=== PATIENT | female | born 1955 | race Caucasian/White ===

== ENCOUNTER 2019-04-07 | Emergency (ER) | payer SELFPAY ==
[2019-04-07 17:18] LABS: HEMATOCRIT 40.8 % (37.0-47.0); HEMOGLOBIN 13.4 g/dl (12.0-16.0); IMMATURE GRANULOCYTES 0.5 % (0.0-5.0); MEAN CELL VOLUME 93.4 fL CALC (80.0-100.0); MEAN CORPUSCULAR HGB 30.7 pG CALC (26.0-32.0); MEAN CORPUSCULAR HGB CONC 32.8 g/L CALC (32.0-36.0); NEUT# 6.83 thou/uL (2.00-7.15); RED BLOOD COUNT 4.37 mill/uL (4.20-5.60); RED CELL DISTRI WIDTH 13.7 % (11.5-15.5)
[2019-04-07 17:21] LABS: URINE BILIRUBIN - DIPSTICK NEGATIVE (NEGATIVE); URINE BLOOD DIPSTICK NEGATIVE (NEGATIVE); URINE COLOR YELLOW; URINE GLUCOSE - DIPSTICK NEGATIVE (NEGATIVE); URINE KETONE NEGATIVE (NEGATIVE); URINE LEUK ESTERASE NEGATIVE (NEGATIVE); URINE NITRITE - DIPSTICK NEGATIVE (Negative); URINE PROTEIN - DIPSTICK TRACE mg/dL (NEG-TRACE); URINE SPECIFIC GRAVITY 1.015; URINE UROBILINOGEN - DIPSTICK 0.2 E.U./dL (0.2)
[2019-04-07 17:37] LABS: ALBUMIN 4.8 g/dL (3.2-5.0); ALKALINE PHOSPHATASE 114 u/l (38-126); ANION GAP 15 (6-22 (CALC)); BILIRUBIN, TOTAL 0.5 mg/dL (0.0-1.4); BUN 12 mg/dL (8-23); BUN/CREATININE RATIO 26 (12-20 (CALC)); CARBON DIOXIDE 24 mmol/l (22-30); CHLORIDE 103 mmol/l (95-108); CREATININE 0.5 mg/dL (0.5-1.0); GFR > 60 ML/MIN (>=60 (CALC)); GFR FOR AFR.AMER. > 60 ML/MIN (>=60 (CALC)); LIPASE 89 u/l (23-300); POTASSIUM 4.1 mmol/l (3.5-5.1); SGOT/AST 37 u/l (9-36); SODIUM 138 mmol/l (137-146); TOTAL PROTEIN 7.7 g/dL (6.3-8.2)
== END 2019-04-07 20:15 | disposition home or self-care (01) | DRG 392 ==
PROVIDERS: Family Medicine
DX: R10.12 Left upper quadrant pain (principal); R10.32 Left lower quadrant pain; R51 Headache
CPT/HCPCS: Q9967

== ENCOUNTER 2019-11-01 18:06 | Inpatient (IN) | payer SELFPAY ==
[~2019-11-01] VITALS: Ht 157.5 cm; Wt 80.7 kg
[2019-11-01 18:51] LABS: HEMATOCRIT 38.8 % (37.0-47.0); HEMOGLOBIN 12.7 g/dl (12.0-16.0); IMMATURE GRANULOCYTES 0.6 % (0.0-5.0); MEAN CELL VOLUME 91.1 fL CALC (80.0-100.0); MEAN CORPUSCULAR HGB 29.8 pG CALC (26.0-32.0); MEAN CORPUSCULAR HGB CONC 32.7 g/dL CAL (32.0-36.0); NEUT# 2.7 thou/uL (2.00-7.15); RED BLOOD COUNT 4.26 mill/uL (4.20-5.60); RED CELL DISTRI WIDTH 14.2 % (11.5-15.5)
[2019-11-01 19:09] LABS: ALKALINE PHOSPHATASE 98 u/l (38-126); ANION GAP 13 (6-22 (CALC)); BILIRUBIN, TOTAL 0.7 mg/dL (0.0-1.4); BUN 12 mg/dL (8-23); BUN/CREATININE RATIO 21 (12-20 (CALC)); C-REACTIVE PROTEIN 8.5 mg/dL (0-0.9); CARBON DIOXIDE 27 mmol/l (22-30); CHLORIDE 94 mmol/l (95-108); CREATININE 0.6 mg/dL (0.5-1.0); GFR > 60 ML/MIN (>=60 (CALC)); GFR FOR AFR.AMER. > 60 ML/MIN (>=60 (CALC)); POTASSIUM 3.8 mmol/l (3.5-5.1); SGOT/AST 36 u/l (9-36); TOTAL PROTEIN 6.5 g/dL (6.3-8.2)
[2019-11-01 19:11] LABS: SODIUM 130 mmol/l (137-146)
--- NOTE | 2019-11-01 19:25 | NUR ---
PT TRIAGED. C/O NAUSEA. UNABLE TO GIVE HX ENTIRELY. DOES NOT HAVE MED LIST. IV PORT ALREADY STARTED. IVF STARTED/ZOFRAN GIVEN. TEMP 100.7 AND OFIMIR GIVEN. PT ON O2. TO XRAY VIA STRETCHER WITH O2.
--- NOTE | 2019-11-01 19:50 | NUR ---
PT RETURNED AND IVF RE-CONNECTED. PT RE-CONNECTED TO [facility].
--- NOTE | 2019-11-01 21:12 | NUR ---
PT UP TO BSC TO VOID. PT WILL BE AN ER HOLD. STRETCHER REMOVED AND HOSPITAL BED IN ROOM FOR PT COMFORT. PT GIVEN GINGERALE AND CRACKERS/WATER/CRANBERRY JUICE. PT UNABLE TO VOID AT THIS TIME.
[2019-11-01 22:00] VITALS: BP 119/70
--- NOTE | 2019-11-01 22:11 | NUR ---
PT WAS UNABLE TO URINATE EARLIER...BUT NOW VOIDED 450 CC OF CLEAR VONNIE URINE. SAMPLE TO LAB. PT FEELS BETTER. NO VOMITING SINCE ARRIVAL. DRINKING PO FLUIDS. VSS.
[2019-11-01 23:49] LABS: URINE BILIRUBIN - DIPSTICK NEGATIVE (NEGATIVE); URINE BLOOD DIPSTICK NEGATIVE (NEGATIVE); URINE CLARITY CLEAR; URINE COLOR YELLOW; URINE GLUCOSE - DIPSTICK NEGATIVE (NEGATIVE); URINE KETONE NEGATIVE (NEGATIVE); URINE LEUK ESTERASE NEGATIVE (Negative); URINE NITRITE - DIPSTICK NEGATIVE (Negative); URINE PH 6.5 (4.5-8.0); URINE PROTEIN - DIPSTICK NEGATIVE (NEG-TRACE); URINE SPECIFIC GRAVITY <=1.005; URINE UROBILINOGEN - DIPSTICK 0.2 E.U./dL (0.2)
--- NOTE | 2019-11-02 01:56 | NUR ---
PT SLEEPING. NAD. VSS.
[2019-11-02 02:00] VITALS: BP 103/67
--- NOTE | 2019-11-02 03:00 | NUR ---
PT OUT OF BED TO BSC TO VOID. STATES WHEN SHE WOKE UP THE BED WAS WET....IV PULLED OUT AND FLUIDS RUNNING INTO THE BED. LINENS CHANGED.
--- NOTE | 2019-11-02 04:29 | NUR ---
RESTING. AWAKE. NAD
--- NOTE | 2019-11-02 05:49 | NUR ---
LAB HERE TO DRAW AM LABS.
[2019-11-02 06:19] VITALS: BP 117/71
[2019-11-02 06:28] LABS: BUN 10 mg/dL (8-23); BUN/CREATININE RATIO 22 (12-20 (CALC)); C-REACTIVE PROTEIN 8.5 mg/dL (0-0.9); CREATININE 0.4 mg/dL (0.5-1.0); GFR > 60 ML/MIN (>=60 (CALC)); GFR FOR AFR.AMER. > 60 ML/MIN (>=60 (CALC)); POTASSIUM 3.7 mmol/l (3.5-5.1); SODIUM 135 mmol/l (137-146)
[2019-11-02 06:30] LABS: HEMATOCRIT 38.3 % (37.0-47.0); HEMOGLOBIN 12.5 g/dl (12.0-16.0); MEAN CELL VOLUME 92.3 fL CALC (80.0-100.0); MEAN CORPUSCULAR HGB 30.1 pG CALC (26.0-32.0); MEAN CORPUSCULAR HGB CONC 32.6 g/dL CAL (32.0-36.0); NEUT# 1.1 thou/uL (2.00-7.15); RED BLOOD COUNT 4.15 mill/uL (4.20-5.60); RED CELL DISTRI WIDTH 14.3 % (11.5-15.5)
[2019-11-02 07:09] LABS: ANION GAP 12 (6-22 (CALC)); CARBON DIOXIDE 21 mmol/l (22-30); CHLORIDE 106 mmol/l (95-108)
--- NOTE | 2019-11-02 07:12 | NUR ---
REPORT TO ANKITA NIEVES
--- NOTE | 2019-11-02 07:16 | NUR ---
The patient is an ER hold. No complaints at this time.
--- NOTE | 2019-11-02 07:17 | NUR ---
the patient is waiting for a room, er hold at this time.
--- NOTE | 2019-11-02 08:00 | NUR ---
tHE PATIENT IS RESTING COMFORTABLY
--- NOTE | 2019-11-02 09:00 | NUR ---
tHE PATIENT WAS MEDICAATED WITH MORNING MEDS. IV FLUID. NO COMPLAINTS AT THIS TIME.
[2019-11-02] MEDS ORDERED: ALBUTEROL SUL0.083 % IN (09:55)
[2019-11-02] MEDS ORDERED: ALENDRONATE SOD70 MG PO (09:57)
[2019-11-02] MEDS ORDERED: AMITRIPTYLIN25 MG PO (09:58)
[2019-11-02] MEDS ORDERED: ANASTROZOLE1 MG PO (09:58)
[2019-11-02] MEDS ORDERED: FOLIC ACID1 MG PO (09:59)
[2019-11-02] MEDS ORDERED: CIPROFLOXACN500 MG PO (09:59)
[2019-11-02] MEDS ORDERED: LIPITOR40 M1 PO (09:59)
[2019-11-02] MEDS ORDERED: GABAPENTIN100 MG PO (10:00)
[2019-11-02] MEDS ORDERED: PROMETHAZIN1 PO (10:01)
--- NOTE | 2019-11-02 10:03 | NUR ---
THE PATIENT WANTS A PHONE TO CALL HER .
--- NOTE | 2019-11-02 11:10 | NUR ---
THE PATIENT IS WAITING FOR A ROOM. WILL MAKE SURE SHE GETS A FOOD TRAY FOR LUNCH
--- NOTE | 2019-11-02 12:10 | NUR ---
SBAR PRINTED TO FLOOR
--- NOTE | 2019-11-02 13:00 | NUR ---
THE PATIENT ATE LUNHCH.
--- NOTE | 2019-11-02 14:14 | NUR ---
WAITING FOR ROOM UPSTAIRS. NO COMPLAINTS AT THIS TIME
[2019-11-02 16:24] VITALS: BP 147/87
--- NOTE | 2019-11-02 16:24 | NUR ---
PT ARRIVED TO MED SURG ROOM 287 IN STABLE CONDITION VIA WHEELCHAIR ACCOMPAINED BY ER STAFF. PT AMBULATED FROM WHEELCHAIR TO BED WITH STEADY GAIT, FALL RISK BAND APPLIED. PT IS A/OX3. ASSESSMENT ANND VITALS COMPLETED AT THIS TIME. BP 147/87, HR 94, O2 95% ON 2L NC. RESPIRATIONS ARE EVEN AND UNLABORED WITH NO SIGNS OF DISTRESS. LUNG SOUNDS ARE CLEAR. HEART RHYTHM IS NORMAL. BOWEL SOUNDS ARE HYPOACTIVE, LAST REPORTED BM 11/02/19. RADIAL AND PEDAL PULSES ARE STRONG WITH NORMAL CAPILLARY REFILL. #22G IN LAC RUNNING AT 50MLS ORDERED, SITE APPEARS HEALHTY AND PATENT. PT COMPLAINS OF 7/10 LOWER BACK PAIN. TYLENOL TO BE ADMINSITERED. PT INFORMS WRITTER THAT SHE REPORTED TO ER FOR VOMITING AND SOB. PT ALSO INFORMS WRITTER THAT SHE HAS BEEN TAKING ANTIBIOTICS FOR ABOUT 5 DAYS. PT INFORMS WRITTER THAT SHE HAS NO KNOWN ALLERGIES, ALLERGY BAND APPLIED. ALL SAFTEY PRECAUTIONS ARE IN PLACE. PT ORIENTED TO ROOM AND CALL SYSTEM. WILL CONTINUE TO MONITOR
--- NOTE | 2019-11-02 19:06 | NUR ---
REPORT FROM RUPINDER ROGERS. PT NOTED RESTING IN BED. NO APPARENT DISTRESS NOTED. IV SITE APPEARS HEALTHY. PT DENIES ANY PAIN OR DISCOMFORT. NO APPARENT RESPIRATORY DISTRESS NOTED, 02 @ 2L/M VIA NC. SAP BASIS IN PLACE. DISCUSSED POC. PT VERBALIZED UNDERSTANDING. CALL LIGHT WITHIN REACH. WILL CONTINUE TO MONITOR.
[2019-11-02 19:30] VITALS: BP 143/80
--- NOTE | 2019-11-02 23:38 | NUR ---
PT RESTING IN BED. NO APPARENT DISTRESS NOTED. CALL LIGHT WITHIN REACH. WILL CONTINUE TO MONITOR.
[2019-11-03 00:14] VITALS: BP 108/69
--- NOTE | 2019-11-03 03:17 | NUR ---
PT RESTING IN BED WITH EYES CLOSED. NO APPARENT DISTRESS NOTED. RESPIRATIONS EVEN AND UNLABORED. TOPOGRAPHY TECHNICIAN IN PLACE. IV SITES APPEAR HEALTHY. CALL LIGHT WITHIN REACH. WILL CONTINUE TO MONITOR.
[2019-11-03 04:00] VITALS: BP 142/77
[2019-11-03 05:31] LABS: HEMATOCRIT 36.3 % (37.0-47.0); HEMOGLOBIN 11.7 g/dl (12.0-16.0); IMMATURE GRANULOCYTES 0.5 % (0.0-5.0); MEAN CELL VOLUME 92.8 fL CALC (80.0-100.0); MEAN CORPUSCULAR HGB 29.9 pG CALC (26.0-32.0); MEAN CORPUSCULAR HGB CONC 32.2 g/dL CAL (32.0-36.0); NEUT# 4.63 thou/uL (2.00-7.15); RED BLOOD COUNT 3.91 mill/uL (4.20-5.60); RED CELL DISTRI WIDTH 14.4 % (11.5-15.5)
[2019-11-03 06:30] LABS: ALBUMIN 3.3 g/dL (3.2-5.0); ALKALINE PHOSPHATASE 76 u/l (38-126); ANION GAP 12 (6-22 (CALC)); BUN 14 mg/dL (8-23); BUN/CREATININE RATIO 30 (12-20 (CALC)); C-REACTIVE PROTEIN 5.1 mg/dL (0-0.9); CARBON DIOXIDE 19 mmol/l (22-30); CHLORIDE 110 mmol/l (95-108); CREATININE 0.5 mg/dL (0.5-1.0); GFR > 60 ML/MIN (>=60 (CALC)); GFR FOR AFR.AMER. > 60 ML/MIN (>=60 (CALC)); MAGNESIUM 2.1 mg/dL (1.6-2.3); POTASSIUM 3.7 mmol/l (3.5-5.1); SGOT/AST 34 u/l (9-36); SODIUM 138 mmol/l (137-146); TOTAL PROTEIN 5.6 g/dL (6.3-8.2)
[2019-11-03 06:33] LABS: BILIRUBIN, TOTAL 0.4 mg/dL (0.0-1.4)
[2019-11-03 07:37] VITALS: BP 122/74
--- NOTE | 2019-11-03 07:37 | NUR ---
PT SITTING IN BED. A&O X3. NO DISTRESS NOTED. PT CURRENTLY ON O2 VIA NC @ 2L, DENIES O2 USE AT HOME. ATTEMPT TO TITRATE PT OFF O2 WILL BE MADE. NO OTHER NEEDS AT THIS TIME. ASSESSMENT COMPLETED. DISCUSSED POC. ISOLATION PRECAUTIONS IN PLACE. CALL LIGHT IN REACH. CONTINUE TO MONITOR.
[2019-11-03 11:10] VITALS: BP 146/75
--- NOTE | 2019-11-03 12:50 | NUR ---
PT SITTING IN RECLINER. PT ASSISTED TO THE SHOWER BY HOLLIE BLANKENSHIP. NO DISTRESS OR NEEDS AT THIS TIME. CALL LIGHT IN REACH. CONTINUE TO MONITOR.
[2019-11-03 15:35] VITALS: BP 146/81
--- NOTE | 2019-11-03 19:12 | NUR ---
REPORT FROM SELINA ROGERS. PT SITTING UP IN CHAIR AT BEDSIDE. NO APPARENT DISTRESS NOTED. IV SITE APPEARS HEALTHY WITH IVF INFUSING. PT DENIES ANY PAIN OR DISCOMFORT. NO APPARENT RESPIRATORY DISTRESS NOTED, ON RA. NEON GLASS BENDER IN PLACE. DISCUSSED POC. PT VERBALIZED UNDERSTANDING. CALL LIGHT WITHIN REACH. WILL CONTINUE TO MONITOR.
[2019-11-03 19:20] VITALS: BP 121/79
--- NOTE | 2019-11-03 21:45 | NUR ---
PT C/O BURNING AT IV SITE WITH AZITHROMYCIN INFUSING. IV SITE FLUSHED WITH NS, BURNING RESOLVED. IV SITE APPEARS HEALTHY, NO REDNESS OR SWELLING NOTED, BLOOD RETURN NOTED. IV ABT AZITHROMYCIN RATE DECREASED WITH EFFECT. CHIEF RADIOLOGY OFFERED TO ATTEMPT TO START NEW SITE, PT REFUSED AT THIS TIME. PT DENIES ANY OTHER WANTS OR NEEDS. CALL LIGHT WITHIN REACH. WILL CONTINUE TO MONITOR.
--- NOTE | 2019-11-04 00:16 | NUR ---
PT RESTING IN BED WITH EYES CLOSED. NO APPARENT DISTRESS NOTED. CALL LIGHT WITHIN REACH. WILL CONTINUE TO MONITOR.
[2019-11-04 00:26] VITALS: BP 138/78
--- NOTE | 2019-11-04 04:06 | NUR ---
PT RESTING IN BED WITH EYES CLOSED. NO APPARENT DISTRESS NOTED. PT ON RA, RESPIRATIONS EVEN AND UNLABORED. CALL LIGHT WITHIN REACH. WILL CONTINUE TO MONITOR.
[2019-11-04 07:59] VITALS: BP 108/67
--- NOTE | 2019-11-04 07:59 | NUR ---
PT SITTING IN RECLINER. A&O X3. NO DISTRESS NOTED. PT REPORTS TO BE FEELING BETTER THAN YESTERDAY THIS MORNING. PT CURRENTLY ON RA AND STATES SHE DID NOT USE THE O2 THROUGHOUT THE NIGHT. NO OTHER NEEDS AT THIS TIME. ASSESSMENT COMPLETED. DISCUSSED POC. ISOLATION PRECAUTIONS IN PLACE. CALL LIGHT IN REACH. CONTINUE TO MONITOR.
[2019-11-04 10:00] VITALS: BP 136/64
--- NOTE | 2019-11-04 10:43 | NUR ---
PT AMBULATING ROOM WITH O2 % @ HIGH 70-MID 80'S RA. RESULTS COMMUNICATED WITH COMPONENT LAB TECH.
--- NOTE | 2019-11-04 12:40 | NUR ---
PT SITTING IN RECLINER EATING LUNCH. NO DISTRESS OR NEEDS AT THIS TIME. CALL LIGHT IN REACH. CONTINUE TO MONITOR.
[2019-11-04 15:00] VITALS: BP 114/88
--- NOTE | 2019-11-04 18:00 | NUR ---
PT SITTING IN RECLINER. NO DISTRESS OR NEEDS AT THIS TIME. CALL LIGHT IN REACH. CONTINUE TO MONITOR.
[2019-11-04 19:20] VITALS: BP 148/75
--- NOTE | 2019-11-04 20:05 | NUR ---
REPORT FROM SELINA ROGERS. PT SITTING UP IN CHAIR AT BEDSIDE. NO APPARENT DISTRESS NOTED. IV SITE APPEARS HEALTHY WITH IVF INFUSING. PT DENIES ANY PAIN OR DISCOMFORT. NO APPARENT RESPIRATORY DISTRESS NOTED, ON RA. DRY FOOD PRODUCTS MIXER IN PLACE. DISCUSSED POC. PT VERBALIZED UNDERSTANDING. CALL LIGHT WITHIN REACH. WILL CONTINUE TO MONITOR.
--- NOTE | 2019-11-05 00:16 | NUR ---
PT RESTING IN BED. NO APPARENT DISTRESS NOTED. ALERT AND ORIENTED X3. PT DENIES ANY PAIN OR DISCOMFORT. CALL LIGHT WITHIN REACH. WILL CONTINUE TO MONITOR.
[2019-11-05 00:25] VITALS: BP 141/76
--- NOTE | 2019-11-05 04:27 | NUR ---
PT RESTING IN BED WITH EYES CLOSED. NO APPARENT DISTRESS NOTED. RESPIRATIONS EVEN AND UNLABORED. CALL LIGHT WITHIN REACH. WILL CONTINUE TO MONITOR.
[2019-11-05 04:42] VITALS: BP 140/76
[2019-11-05 05:01] LABS: HEMATOCRIT 32.9 % (37.0-47.0); HEMOGLOBIN 10.7 g/dl (12.0-16.0); IMMATURE GRANULOCYTES 1.4 % (0.0-5.0); MEAN CELL VOLUME 91.1 fL CALC (80.0-100.0); MEAN CORPUSCULAR HGB 29.6 pG CALC (26.0-32.0); MEAN CORPUSCULAR HGB CONC 32.5 g/dL CAL (32.0-36.0); NEUT# 3.3 thou/uL (2.00-7.15); RED BLOOD COUNT 3.61 mill/uL (4.20-5.60); RED CELL DISTRI WIDTH 14.2 % (11.5-15.5)
[2019-11-05 05:22] LABS: ALBUMIN 3.2 g/dL (3.2-5.0); ALKALINE PHOSPHATASE 78 u/l (38-126); BILIRUBIN, TOTAL 0.5 mg/dL (0.0-1.4); BUN 12 mg/dL (8-23); BUN/CREATININE RATIO 27 (12-20 (CALC)); C-REACTIVE PROTEIN 2.2 mg/dL (0-0.9); CHLORIDE 105 mmol/l (95-108); CREATININE 0.4 mg/dL (0.5-1.0); GFR > 60 ML/MIN (>=60 (CALC)); GFR FOR AFR.AMER. > 60 ML/MIN (>=60 (CALC)); POTASSIUM 3.2 mmol/l (3.5-5.1); SODIUM 136 mmol/l (137-146); TOTAL PROTEIN 5.3 g/dL (6.3-8.2)
[2019-11-05 05:23] LABS: ANION GAP 10 (6-22 (CALC)); CARBON DIOXIDE 24 mmol/l (22-30); SGOT/AST 65 u/l (9-36)
[2019-11-05 08:02] VITALS: BP 114/81
--- NOTE | 2019-11-05 08:02 | NUR ---
PT SITTING IN RECLINER, SLIGHT FLUSHING TO FACE NOTED BUT CURRENTLY AFEBRILE.O2 VIA NC @2L IN PLACE. NO OTHER NEEDS AT THIS TIME. ASSESSMENT COMPLETED. DISCUSSED POC. ISOLATION PRECAUTIONS IN PLACE. CALL LIGHT IN REACH. CONTINUE TO MONITOR.
[2019-11-05 10:30] VITALS: BP 116/75
--- NOTE | 2019-11-05 12:25 | NUR ---
PT SITTING IN RECLINER. NO DISTRESS OR NEEDS AT THIS TIME O2 VIA NC IN PLACE. CALL LIGHT IN REACH. CONTINUE TO MONITOR.
[2019-11-05 15:00] VITALS: BP 137/71
--- NOTE | 2019-11-05 17:34 | NUR ---
CALL PLACED TO MS AND SPOKE WITH SELINA, PATIENT'S NURSE. GAVE POSITIVE COVID-19 RESULTS. SELINA REPORTS SHE AND DR. ROSALES AWARE.
--- NOTE | 2019-11-05 17:40 | NUR ---
PT SITTING IN RECLINER. NO DISTRESS OR NEEDS AT THIS TIME. CALL LIGHT IN REACH. CONTINUE TO MONITOR.
[2019-11-05 19:20] VITALS: BP 142/84
--- NOTE | 2019-11-05 19:30 | NUR ---
1930-Pt assessment complete. Pt pleasant female. No s/s of distress. Denies pain. States her SOB is getting better. Bed low and locked. Call light and phone within reach. Pt stable. Will continue to monitor.
--- NOTE | 2019-11-05 22:42 | NUR ---
224-EZEQUIEL Loera attempted to replace IV access after I determined current IV access was not patent. Pt tolerated removal well, IV catheter intact. No IV access was established. I contacted Dr. Ureña about changing IV meds to PO at 2303, he immediately responded that he would change the orders. Pt stated the site felt better and denied any further discomfort. Bed low and locked. Call light and phone within reach. Pt stable. Will continue to monitor.
[2019-11-06] VITALS (7 sets, daily range): BP systolic 124–168; BP diastolic 67–88
--- NOTE | 2019-11-06 03:13 | NUR ---
0320-Pt lying in bed, eyes closed and resting. No s/s of distress. Call light and phone within reach. Pt stable. Will continue to monitor.
[2019-11-06 05:38] LABS: HEMATOCRIT 35.1 % (37.0-47.0); HEMOGLOBIN 11.5 g/dl (12.0-16.0); IMMATURE GRANULOCYTES 3.1 % (0.0-5.0); MEAN CELL VOLUME 90.5 fL CALC (80.0-100.0); MEAN CORPUSCULAR HGB 29.6 pG CALC (26.0-32.0); MEAN CORPUSCULAR HGB CONC 32.8 g/dL CAL (32.0-36.0); NEUT# 5.03 thou/uL (2.00-7.15); RED BLOOD COUNT 3.88 mill/uL (4.20-5.60); RED CELL DISTRI WIDTH 13.9 % (11.5-15.5)
[2019-11-06 05:48] LABS: ALBUMIN 3.4 g/dL (3.2-5.0); ALKALINE PHOSPHATASE 87 u/l (38-126); ANION GAP 10 (6-22 (CALC)); BILIRUBIN, TOTAL 0.6 mg/dL (0.0-1.4); BUN 15 mg/dL (8-23); BUN/CREATININE RATIO 29 (12-20 (CALC)); CARBON DIOXIDE 25 mmol/l (22-30); CHLORIDE 104 mmol/l (95-108); CREATININE 0.5 mg/dL (0.5-1.0); GFR > 60 ML/MIN (>=60 (CALC)); GFR FOR AFR.AMER. > 60 ML/MIN (>=60 (CALC)); POTASSIUM 3.7 mmol/l (3.5-5.1); SGOT/AST 63 u/l (9-36); SODIUM 136 mmol/l (137-146); TOTAL PROTEIN 5.7 g/dL (6.3-8.2)
--- NOTE | 2019-11-06 05:50 | NUR ---
0550-Hourly rounding completed. Pt lying on left side asleep and resting well. Bed low and locked. Call light and phone within reach. Pt stable, no s/s of distress. Will continue to monitor.
--- NOTE | 2019-11-06 08:50 | NUR ---
ASSESSMENT DONE. PT IS SITTING IN THE RECLINER. TELE IN PLACE. PT IS A&O X3. NO IV SITE PER PT AND MD AWARE. PT STATED MILD PAIN IN BACK WHEN SHE TAKES DEEP BREATHS. PT DENIES PAIN MEDICATION. CALL LIGHT IN REACH.
--- NOTE | 2019-11-06 12:10 | NUR ---
PT IS SITTING IN RECLINER WITH NO S/S OF DISTRESS NOTED. PT STATED WHEN SHE TAKES DEEP BREATH SOMETIMES SHE HAS MILD SOB. TELE IN PLACE. PT DENIES ANY NEEDS AT THIS TIME. CALL LIGHT IN REACH.
--- NOTE | 2019-11-06 16:30 | NUR ---
PT IS RESTING IN BED ON HER LEFT SIDE. PT STATED HER BREATHING IS BETTER. PO FLUIDS PROVIDED. PT DENIES ANY NEEDS AT THIS TIME. CALL LIGHT IN REACH.
--- NOTE | 2019-11-06 19:00 | NUR ---
RECEIVED REPORT FROM NURSE JOSE PATIENT IS RESTING IN BED, WATCHING TV, SHALLOW UNLABORED BREATHING, MAINTAINED ON AIR AND CONTACT ISOLATION, CALL LIGHT AT REACH.
--- NOTE | 2019-11-06 20:16 | NUR ---
PATIENT ALERT ORIENTED ABLE TO MAKE NEEDS KNOWN, REMAINS ON TELE, NO IV SITE, MD AWARE, LBM /, HAVING OCCAIONAL NON PRODUCTIVE COUGH POX 93% ON RA, REMAINS AFEBRILE BREATHING SHALLOW UNLABORED, CALL LIGHT AT REACH.
--- NOTE | 2019-11-07 | NUR ---
PATIENT APPEARS TO BED SLEEPING WITH EYES CLOSED, NOT IN DISTRESS, NO DISCOMFORTS NOTED CALL LIGHT AT REACH.
[2019-11-07 03:10] VITALS: BP 169/97
[2019-11-07 03:44] VITALS: BP 153/82
--- NOTE | 2019-11-07 03:44 | NUR ---
PATIENT APPEARS TO BE SLEEPING ON PRONE POSITION BREATHING EVEN UNLABORED, CALL LIGHT AT REACH.
[2019-11-07 05:12] LABS: HEMATOCRIT 35.1 % (37.0-47.0); HEMOGLOBIN 11.5 g/dl (12.0-16.0); IMMATURE GRANULOCYTES 2.4 % (0.0-5.0); MEAN CELL VOLUME 90.9 fL CALC (80.0-100.0); MEAN CORPUSCULAR HGB 29.8 pG CALC (26.0-32.0); MEAN CORPUSCULAR HGB CONC 32.8 g/dL CAL (32.0-36.0); NEUT# 6.22 thou/uL (2.00-7.15); RED BLOOD COUNT 3.86 mill/uL (4.20-5.60); RED CELL DISTRI WIDTH 14.3 % (11.5-15.5)
[2019-11-07 05:32] LABS: ALBUMIN 3.3 g/dL (3.2-5.0); ALKALINE PHOSPHATASE 84 u/l (38-126); ANION GAP 10 (6-22 (CALC)); BILIRUBIN, TOTAL 0.6 mg/dL (0.0-1.4); BUN 20 mg/dL (8-23); BUN/CREATININE RATIO 37 (12-20 (CALC)); C-REACTIVE PROTEIN 1.1 mg/dL (0-0.9); CARBON DIOXIDE 25 mmol/l (22-30); CHLORIDE 103 mmol/l (95-108); CREATININE 0.5 mg/dL (0.5-1.0); GFR > 60 ML/MIN (>=60 (CALC)); GFR FOR AFR.AMER. > 60 ML/MIN (>=60 (CALC)); POTASSIUM 3.8 mmol/l (3.5-5.1); SGOT/AST 46 u/l (9-36); SODIUM 134 mmol/l (137-146); TOTAL PROTEIN 5.6 g/dL (6.3-8.2)
--- NOTE | 2019-11-07 07:15 | NUR ---
REPORT RECEIVED FROM EZEQUIEL HENRY
[2019-11-07 08:20] VITALS: BP 154/91
--- NOTE | 2019-11-07 08:20 | NUR ---
PT RESTING IN RECLINER,A&O X3;VS OBTAINED AND ASSESSMENT COMPLETED;PT DENIES ANY CURRENT PAIN OR DISCOMFORTS,PAIN SCALE AND REPORTING EDUCATED;RESPIRATIONS EVEN AND UNLABORED ON RA;NON-PRODUCTIVE COUGH NOTED AT TIMES;ABDOMEN SOFT ON PALPATION AND ACTIVE IN ALL 4 QUADRANTS;STRONG PEDAL PULSES;SKIN INTACT;TELE MONITORING IN PLACE;NO IV SITE, MD AWARE;PT DENIES ANY ADDITIONAL NEEDS AT THIS TIME AND IS ENCOURAGED TO CALL FOR ASSISTANCE IF NEEDED;AIR/CONTACT PRECAUTIONS REMAIN IN PLACE ALCAZAR COVID 19 DX;CALL LIGHT IN REACH;WILL CONTINUE TO MONITOR
--- NOTE | 2019-11-07 08:41 | NUR ---
AT BEDSIDE DISCUSSING POC.
[2019-11-07] MEDS ORDERED: ZITHROMAX250 MG PO (08:48)
[2019-11-07] MEDS ORDERED: DECADRON2 MG PO (08:48)
--- NOTE | 2019-11-07 10:10 | NUR ---
6 MIN OXYGEN QUALIFICATION TEST OBTAINED AT THIS TIME;O2 SATS WHILE AT REST 93% ON RA, WHILE AMBULATING PT O2 SATS DROPPED TO 89% ON RA AND QUICKLY HAMLET TO 93% AGAIN AT REST;PT TOLERATED WELL AND DENIES ANY CURRENT NEEDS;CALL LIGHT IN REACH;WILL CONTINUE TO MONITOR
--- NOTE | 2019-11-07 11:05 | NUR ---
ALL DISCHARGE INSTRUCTIONS PROVIDED AT THIS TIME;RX FOR ZITHRO AND DECADRON GIVEN TO PT;PT INSTRUCTED TO TAKE BOTH MEDICATION FOR 4 MORE DAYS PRESCRIBED, SELF ISOLATE AND F/U WITH PCP IN A WEEK FOR ADDITIONAL COVID19 TESTING;PT DENIES ANY ADDITIONAL QUESTIONS OR NEEDS;TELE MONITORING D/C AT THIS TIME;WHEELCHAIR TO BE PROVIDED FOR D/C HOME;SPOUSE TO TRANSPORT PT HOME;CALL LIGHT IN REACH;WILL CONTINUE TO MONITOR
[2019-11-07 11:24] VITALS: BP 134/75
--- NOTE | 2019-11-07 12:01 | NUR ---
Discharge instructions given. Patient verbalizes understanding of same. Discharged in stable condition via Wheelchair to Home with spouse. All belongings sent with pt. PT TRANSPORTED TO [facility] IN STABLE CONDITION VIA WHEELCHAIR ACCOMPANIED BY THIS WRITTER.ALL BELONGINGS LFT WITH PT INCLUDING D/C PACKET AND RX.
--- NOTE | 2019-11-16 13:21 | NUR ---
Pneumonia post discharge follow up calll completed today, 11/16/19. Pt. states she is doing much better than when she initially came home. No feever, chills, SOB, or excessive fatigue. States she still experiences chest soremeness when breathing. pt obtained and took discharge medications without issue. States she did develop thrush after taking medication but it has improved. F/U appt. with PCP is scheduled for tomorrow. Encouraged pt to discuss her residual symtoms with PCP. Pt's got on line and requested a return call from the Business office regarding qualification for assistance. I contacted. Nandini Wilde in patient accounts and she will follow up with patient. No other questions or needs identified at this time.
== END 2019-11-07 12:01 | disposition home or self-care (01) | DRG 177 ==
LOC: ED 18:06 → ED-I 19:25 → ED 19:34 → ED-I 19:35 → MS2 19:35
PROVIDERS: Emergency Medicine; Internal Medicine; Nurse Practitioner; Nurse Practitioner Family; ADMIT Internal Medicine; ATTEND Internal Medicine
DX: U07.1 COVID-19 (principal); J12.89 Other viral pneumonia; J96.01 Acute respiratory failure with hypoxia; R11.2 Nausea with vomiting, unspecified; R19.7 Diarrhea, unspecified; E87.6 Hypokalemia; D64.9 Anemia, unspecified; M19.90 Unspecified osteoarthritis, unspecified site; M06.9 Rheumatoid arthritis, unspecified; Z85.3 Personal history of malignant neoplasm of breast; Z85.850 Personal history of malignant neoplasm of thyroid; Z85.42 Personal history of malignant neoplasm of other parts of uterus
CPT/HCPCS: J0131; J1650; Q9967

== ENCOUNTER 2021-09-06 18:35 | Emergency (ER) | payer MEDICARE, OTHER ==
[2021-09-06] VITALS (10 sets, daily range): BP systolic 131–186; BP diastolic 76–110
[~2021-09-06] VITALS: Ht 157.5 cm; Wt 75.0 kg
[~2021-09-06 18:35] MED LIST: ALBUTEROL SUL0.083 % IN; ALENDRONATE SOD70 MG PO; AMITRIPTYLIN25 MG PO; ANASTROZOLE1 MG PO; CIPROFLOXACN500 MG PO; DECADRON2 MG PO; FOLIC ACID1 MG PO; GABAPENTIN100 MG PO; LIPITOR40 M1 PO; PROMETHAZIN1 PO; ZITHROMAX250 MG PO
[2021-09-06 19:26] LABS: IMMATURE GRANULOCYTES 0.1 % (0.0-5.0); MEAN CORPUSCULAR HGB 32.1 pG CALC (26.0-32.0); MEAN CORPUSCULAR HGB CONC 32.7 g/dL CAL (32.0-36.0); NEUT# 4.66 thou/uL (2.00-7.15); RED BLOOD COUNT 4.55 mill/uL (4.20-5.60)
[2021-09-06 19:27] LABS: HEMATOCRIT 44.7 % (37.0-47.0); HEMOGLOBIN 14.6 g/dl (12.0-16.0); MEAN CELL VOLUME 98.2 fL CALC (80.0-100.0)
[2021-09-06 19:39] LABS: ALKALINE PHOSPHATASE 113 u/l (38-126); ANION GAP 16 (6-22 (CALC)); BILIRUBIN, TOTAL 0.7 mg/dL (0.0-1.4); BUN 10 mg/dL (8-23); BUN/CREATININE RATIO 19 (12-20 (CALC)); CARBON DIOXIDE 28 mmol/l (22-30); CHLORIDE 100 mmol/l (95-108); CREATININE 0.5 mg/dL (0.5-1.0); GFR FOR AFR.AMER. > 60 ML/MIN (>=60 (CALC)); GFR OTHER RACES > 60 ML/MIN (>=60 (CALC)); POTASSIUM 4.1 mmol/l (3.5-5.1); SGOT/AST 24 u/l (9-36); SODIUM 140 mmol/l (137-146)
[2021-09-06 19:40] LABS: ALBUMIN 4.8 g/dL (3.2-5.0); TOTAL PROTEIN 7.4 g/dL (6.3-8.2)
[2021-09-06 21:44] LABS: URINE BILIRUBIN - DIPSTICK NEGATIVE (NEGATIVE); URINE BLOOD DIPSTICK NEGATIVE (NEGATIVE); URINE COLOR YELLOW; URINE GLUCOSE - DIPSTICK NEGATIVE (NEGATIVE); URINE KETONE NEGATIVE (NEGATIVE); URINE LEUK ESTERASE TRACE (NEGATIVE); URINE PROTEIN - DIPSTICK NEGATIVE (NEG-TRACE); URINE SPECIFIC GRAVITY <=1.005; URINE UROBILINOGEN - DIPSTICK 0.2 E.U./dL (0.2)
[2021-09-06 21:45] LABS: URINE NITRITE - DIPSTICK NEGATIVE (Negative)
[2021-09-06] MEDS ORDERED: IMODIUM2 MG PO (21:55)
[2021-09-06] MEDS ORDERED: PROMETHAZINE HY25 M1 PO (21:55)
== END 2021-09-06 22:40 | disposition home or self-care (01) ==
LOC: ED 18:35
PROVIDERS: Family Medicine
DX: R10.32 Left lower quadrant pain (principal); R11.2 Nausea with vomiting, unspecified; R51.9 Headache, unspecified; R05.9 Cough, unspecified; R09.89 Other specified symptoms and signs involving the circulatory and respiratory systems; I10 Essential (primary) hypertension; Z20.822 Contact with and (suspected) exposure to COVID-19